=== PATIENT | female | born 1980 | race African-American/Black ===

== ENCOUNTER 2017-05-10 10:53 | Emergency (ER) | payer OTHER | END 2017-05-10 12:02 | disposition home or self-care (01) | LOC: E/R 10:53 | DX: J20.9 Acute bronchitis, unspecified (principal) | CPT/HCPCS: 99284; Z7502 ==

== ENCOUNTER 2017-08-10 10:40 | Emergency (ER) | payer OTHER | END 2017-08-10 11:21 | disposition home or self-care (01) | LOC: E/R 10:40 | DX: J06.9 Acute upper respiratory infection, unspecified (principal) | CPT/HCPCS: 99284; Z7502 ==

== ENCOUNTER 2018-03-12 11:13 | Emergency (ER) | payer OTHER ==
[2018-03-12 11:35] LABS: URINE BLOOD (Dip) POC Negative (NEGATIVE); URINE GLUCOSE (Dip) POC Negative (NEGATIVE); URINE KETONES (Dip) POC Trace (NEGATIVE); URINE LEUKOCYTE EST (Dip) POC Negative (NEGATIVE); URINE NITRITE (Dip) POC Negative (NEGATIVE); URINE TOTAL PROTEIN POC Trace (NEGATIVE)
== END 2018-03-12 12:08 | disposition home or self-care (01) ==
LOC: FTE 11:13
DX: J06.9 Acute upper respiratory infection, unspecified (principal); R32 Unspecified urinary incontinence
CPT/HCPCS: 81003; 81025; 99283

== ENCOUNTER 2018-04-04 09:06 | Emergency (ER) | payer OTHER | END 2018-04-04 09:42 | disposition home or self-care (01) | LOC: FTE 09:06 | DX: R05 Cough (principal); E11.9 Type 2 diabetes mellitus without complications | CPT/HCPCS: 99283; Z7502 ==

== ENCOUNTER 2018-04-17 12:21 | Emergency (ER) | payer OTHER | END 2018-04-17 13:23 | disposition home or self-care (01) | LOC: FTE 12:21 | DX: R05 Cough (principal); E11.9 Type 2 diabetes mellitus without complications; R40.2412 Glasgow coma scale score 13-15, at arrival to emergency department | CPT/HCPCS: 99282; Z7502 ==

== ENCOUNTER 2018-05-30 12:06 | Emergency (ER) | payer OTHER | END 2018-05-30 14:29 | disposition home or self-care (01) | LOC: FTE 12:06 | DX: R05 Cough (principal); E11.9 Type 2 diabetes mellitus without complications | CPT/HCPCS: 99283; Z7502 ==

== ENCOUNTER 2018-06-15 16:25 | Emergency (ER) | payer OTHER ==
[2018-06-15 21:40] LABS: URINE BLOOD (Dip) POC Negative (NEGATIVE); URINE GLUCOSE (Dip) POC Negative (NEGATIVE); URINE KETONES (Dip) POC Negative (NEGATIVE); URINE LEUKOCYTE EST (Dip) POC Trace (NEGATIVE); URINE NITRITE (Dip) POC Negative (NEGATIVE); URINE TOTAL PROTEIN POC 1+ (NEGATIVE)
[2018-06-15 21:57] LABS: ADD UMIC YES; UR ASCORBIC ACID NEGATIVE (NEGATIVE); UR BACTERIA FEW /HPF (NONE SEEN); UR BILIRUBIN (Dip) NEGATIVE (NEGATIVE); UR BLOOD (Dip) NEGATIVE (NEGATIVE); UR CLARITY SLIGHTLY CLOUDY (CLEAR); UR COLOR YELLOW (YELLOW); UR GLUCOSE (Dip) NEGATIVE (NEGATIVE); UR KETONES (Dip) NEGATIVE (NEGATIVE); UR LEUKOCYTE ESTERASE (Dip) TRACE Leu/ul (NEGATIVE); UR MUCUS FEW /HPF (NONE SEEN); UR NITRITE (Dip) NEGATIVE (NEGATIVE); UR RBC 3 /HPF (0-5); UR SPECIFIC GRAVITY (Dip) 1.025 (1.003-1.030); UR SQUAMOUS EPITHELIAL CELL MODERATE /HPF (FEW); UR TOTAL PROTEIN (Dip) NEGATIVE (NEGATIVE); UR UROBILINOGEN (Dip) NEGATIVE (NEGATIVE); UR WBC 14 /HPF (0-5)
== END 2018-06-15 23:15 | disposition home or self-care (01) ==
LOC: FTE 16:25
DX: N39.0 Urinary tract infection, site not specified (principal); E11.9 Type 2 diabetes mellitus without complications; I10 Essential (primary) hypertension
CPT/HCPCS: 81001; 81003; 81025; 87086; 99283

== ENCOUNTER 2018-08-01 14:09 | Emergency (ER) | payer OTHER | END 2018-08-01 16:26 | disposition home or self-care (01) | LOC: FTE 14:09 | DX: R05 Cough (principal); E11.9 Type 2 diabetes mellitus without complications | CPT/HCPCS: 99282; Z7502 ==